=== PATIENT | female | born 1995 ===

== ENCOUNTER 2025-07-23 06:43 | Inpatient (IN) | payer OTHER ==
[~2025-07-23] VITALS: Ht 162.6 cm; Wt 3.6 kg
[2025-07-23 05:44] VITALS: BP 110/73
[2025-07-23] MEDS ORDERED: PRENATABS RX T1 EACH PO (06:49)
[2025-07-23] MEDS ORDERED: SYNTHROID175 MCG PO (06:49)
[2025-07-23] MEDS ORDERED: CEFAZOLIN SODIUM 1,000 MG VIAL IV SCH (07:00)
[2025-07-23] MEDS ORDERED: RINGERS SOLUTION,LACTATED 1,000 ML IV SCH ×2 (07:00→07:30)
[2025-07-23 07:03] VITALS: BP 115/75; O2SAT 99
[2025-07-23] MEDS ORDERED: OxyCODONE HCL 5 MG TABLET (ROXICODONE) PO PRN (07:30)
[2025-07-23] MEDS ORDERED: CHLORHEXIDINE GLUCONATE 120 ML BOTTLE TOP ONE (07:30)
[2025-07-23] MEDS ORDERED: OXYTOCIN 1,000 ML IV SCH (07:30)
[2025-07-23 07:54] LABS: BASO % 0.3 % (0.1-1.2); EOS # 0.21 (0.04-0.54); EOS % 2.8 % (0.7-7.0); LYMPH # 1.84 (1.18-3.74); LYMPH % 24.4 % (19.3-53.1); MEAN PLATELET VOLUME 11.40 fl (9.4-12.4); MONO # 0.64 (0.24-0.82); MONO % 8.5 % (4.7-12.5); NEUT # 4.80 (1.56-6.13); NEUT % 63.5 % (34.0-71.1); RED CELL DISTRIBUTION WIDTH 13.5 % (11.6-14.4)
[2025-07-23 07:55] LABS: INR 0.94
[2025-07-23 08:16] LABS: ALT/SGPT 18.0 U/L (12-78); AST/SGOT 12.0 U/L (15-37); BILIRUBIN TOTAL 0.3 mg/dL (0.3-1.2); BUN CREA RATIO 9.0 (7.0-25.0); CREATININE SERUM 0.46 mg/dL (0.55-1.02); GFR 159.5; GLOBULINA 3.4 G/DL (2.4-3.5); GLUCOSE FASTING 79.0 mg/dL (65-100); OSMOLALITY SERUM 281.0 MOSM/KG (275-295)
[2025-07-23] MEDS ORDERED: DOCUSATE SODIUM 100MG CAP PO SCH (09:00)
[2025-07-23] MEDS ORDERED: ERYTHROMYCIN BASE OPHT 1GM EACH TUBE OP ONE (09:00)
[2025-07-23] MEDS ORDERED: OXYTOCIN 10 UNITS/ML VIAL IV ONE (09:00)
[2025-07-23] MEDS ORDERED: MORPHINE SULFATE 4 MG/ML VIAL IV ONE ×2 (12:00→12:40)
[2025-07-23 14:06] VITALS: BP 124/76; O2SAT 98
[2025-07-23 16:00] VITALS: BP 118/77
[2025-07-24 00:55] VITALS: BP 106/76
[2025-07-24 08:24] VITALS: BP 120/76
[2025-07-24 10:59] LABS: BASO % 0.1 % (0.1-1.2); EOS # 0.17 (0.04-0.54); EOS % 2.0 % (0.7-7.0); LYMPH # 1.81 (1.18-3.74); LYMPH % 21.6 % (19.3-53.1); MEAN PLATELET VOLUME 11.80 fl (9.4-12.4); MONO # 0.64 (0.24-0.82); MONO % 7.6 % (4.7-12.5); NEUT # 5.73 (1.56-6.13); NEUT % 68.3 % (34.0-71.1); RED CELL DISTRIBUTION WIDTH 13.9 % (11.6-14.4)
[2025-07-24 14:44] VITALS: BP 121/81
[2025-07-25] VITALS: BP 115/79
[2025-07-25 08:44] VITALS: BP 124/83
[2025-07-25] MEDS ORDERED: COLACE100 MG PO (13:17)
[2025-07-25] MEDS ORDERED: IBUPROFEN800 MG PO (13:17)
[2025-07-25] MEDS ORDERED: OXYCODONE HCL5 MG PO (13:17)
== END 2025-07-25 14:48 | disposition home or self-care (01) | DRG 788 ==
LOC: LDR 06:43 → OB/GYN 06:43 → O/R 08:46 → OB/GYN 12:22
PROVIDERS: ADMIT Student in an Organized Health Care Education/Training Program; ATTEND Student in an Organized Health Care Education/Training Program
PROC: 4A1HXCZ Monitoring of Products of Conception, Cardiac Rate, External Approach (ICD-10-PCS; 2025-07-23)
PROC: 10D00Z1 Extraction of Products of Conception, Low, Open Approach (ICD-10-PCS; principal; 2025-07-23 09:30)
DX: O32.1XX0 Maternal care for breech presentation, not applicable or unspecified (principal); Z3A.39 39 weeks gestation of pregnancy; Z37.0 Single live birth